=== PATIENT | male | born 1970 | race Caucasian/White ===

== ENCOUNTER 2016-10-27 17:43 | Emergency (ER) | payer OTHER ==
[~2016-10-27] VITALS: Ht 170.2 cm; Wt 88.5 kg
[~2016-10-27 17:43] MED LIST: CIPROFLOXACIN500 M1 PO; METFORMIN HCL500 MG PO; NOHOMEMEDICATIONS; PHENAZOPYRIDIN100 M1 PO; ROBAFEN AC SYR120 ML PO; ZPAK PO
[2016-10-27] MEDS ORDERED: NAPROSYN500 MG PO (18:43)
[2016-10-27] MEDS ORDERED: METFORMIN HCL500 MG PO (18:43)
[2016-10-27 18:55] VITALS: BP 128/74
== END 2016-10-27 18:56 | disposition home or self-care (01) ==
LOC: ER 17:43
DX: M19.071 Primary osteoarthritis, right ankle and foot (principal); Z76.0 Encounter for issue of repeat prescription; Z90.89 Acquired absence of other organs

== ENCOUNTER 2017-02-14 02:20 | Emergency (ER) | payer OTHER ==
[~2017-02-14] VITALS: Ht 170.2 cm; Wt 82.6 kg
[~2017-02-14 02:20] MED LIST changes: +NAPROSYN500 MG PO
[2017-02-14 02:27] VITALS: BP 155/98
[2017-02-14] MEDS ORDERED: AUGMENTIN 875-1 EACH PO (03:11)
[2017-02-14] MEDS ORDERED: BENADRYL25 MG PO (03:11)
== END 2017-02-14 03:20 | disposition home or self-care (01) ==
LOC: ER 02:20
DX: L02.01 Cutaneous abscess of face (principal); F10.99 Alcohol use, unspecified with unspecified alcohol-induced disorder; Z98.890 Other specified postprocedural states

== ENCOUNTER 2019-03-14 18:35 | Emergency (ER) | payer OTHER ==
[~2019-03-14] VITALS: Ht 170.2 cm; Wt 83.9 kg
[~2019-03-14 18:35] MED LIST changes: +AUGMENTIN 875-1 EACH PO; +BENADRYL25 MG PO; +HYDROCODON-ACE1 EAC7 PO
[2019-03-14 18:38] VITALS: BP 153/100
[2019-03-14] MEDS ORDERED: VIBRAMYCIN 100100 M2 PO (19:06)
== END 2019-03-14 19:20 | disposition home or self-care (01) ==
LOC: ER 18:35
DX: L73.9 Follicular disorder, unspecified (principal); R59.1 Generalized enlarged lymph nodes; E11.9 Type 2 diabetes mellitus without complications; Z90.49 Acquired absence of other specified parts of digestive tract; Z98.890 Other specified postprocedural states

== ENCOUNTER 2020-01-03 21:07 | Emergency (ER) | payer OTHER ==
[~2020-01-03] VITALS: Ht 170.2 cm; Wt 90.7 kg
[~2020-01-03 21:07] MED LIST changes: +VIBRAMYCIN 100100 M2 PO
[2020-01-03] MEDS ORDERED: METFORMIN HCL1000 MG PO (21:28)
[2020-01-03 22:09] VITALS: BP 158/89
== END 2020-01-03 22:00 | disposition home or self-care (01) ==
LOC: ER 21:07
DX: U07.1 COVID-19 (principal); E11.9 Type 2 diabetes mellitus without complications; Z90.49 Acquired absence of other specified parts of digestive tract; Z79.899 Other long term (current) drug therapy

== ENCOUNTER 2020-02-25 09:32 | Emergency (ER) | payer OTHER ==
[~2020-02-25] VITALS: Ht 170.2 cm; Wt 95.3 kg
[~2020-02-25 09:32] MED LIST changes: +METFORMIN HCL1000 MG PO
[2020-02-25] MEDS ORDERED: BACTRIM DS TAB1 EACH PO (13:01)
[2020-02-25] MEDS ORDERED: KEFLEX500 M1 PO (13:01)
[2020-02-25 13:02] VITALS: BP 141/87
== END 2020-02-25 13:02 | disposition home or self-care (01) ==
LOC: ER 09:32
DX: L03.031 Cellulitis of right toe (principal); E11.9 Type 2 diabetes mellitus without complications

== ENCOUNTER 2020-06-26 08:35 | Emergency (ER) | payer OTHER ==
[~2020-06-26] VITALS: Ht 170.2 cm; Wt 91.2 kg
[~2020-06-26 08:35] MED LIST changes: +BACTRIM DS TAB1 EACH PO; +KEFLEX500 M1 PO
[2020-06-26 09:50] LABS: ABSOLUTE NEUTROPHILS 4.5 thou/uL (1.4-8.2); BASOPHILS 0.7 % (0.0-2.0); HEMATOCRIT 42.8 % (42.0-52.0); HEMOGLOBIN 14.2 gm/dL (14.0-18.0); LYMPHOCYTES 15.5 % (24.0-44.0); MCH 29.4 pg (26.0-34.0); MCHC 33.2 g/dL (28.0-37.0); MCV 88.5 fL (80.0-100.0); MONOCYTES 12.2 % (1.0-8.0); PLATELET COUNT 190 thou/uL (150-400); POLYS 71.6 % (36.0-66.0); RBC 4.83 mil/uL (4.50-6.00); RDW 13.3 % (10.5-14.5); WBC 6.3 thou/uL (4.0-11.0)
[2020-06-26 10:04] LABS: ANION GAP 8 mmol/L (7-16); BUN 10 mg/dL (7-18); CALCIUM 8.9 mg/dL (8.5-10.1); CHLORIDE 97 mmol/L (98-107); CO2 26 mmol/L (21-32); CREATININE 0.8 mg/dL (0.7-1.3); GLUCOSE 370 mg/dL (74-106); POTASSIUM 4.1 mmol/L (3.5-5.1); SODIUM 131 mmol/L (136-145)
[2020-06-26 10:14] LABS: ALBUMIN 3.2 g/dL (3.4-5.0); SGOT 13 U/L (15-37); SGPT 30 U/L (16-63); TOTAL BILIRUBIN 0.3 mg/dL (0.2-1.0); TOTAL PROTEIN 7.4 g/dL (6.4-8.2); TROPONIN-I <0.06 ng/mL (<0.06)
--- NOTE | 2020-06-26 10:21 | EKG ---
[place] [address] [facility] [place] [address] ELECTROCARDIOGRAM REPORT Name: CHINO AGUSTIN Room #: REG [facility]#: [id number] Admission: 06/26/20 Attend Phys: Discharge: Date of : 70 Report #: [id number] [facility] ED Test Date: 2020-06-26 Test Time: 09:19:21 Pat Name: CHINO AGUSTIN Department: Room: Gender: M Hide Selector: keesah acevedo : 1970 Requested By: Davis Appiah Order Number: [id number] MD: Arsenio Bah Measurements Intervals [place] Rate: 108 P: 37 MI: 140 QRS: 6 QRSD: 129 T: 8 QT: 338 QTc: 453 Interpretive Statements Sinus tachycardia Right bundle branch block Baseline wander in lead(s) V1 Compared to ECG 04/04/2017 00:13:20 Right bundle-branch block now present Sinus rhythm no longer present Electronically Signed On 06-26-2020 10:21:28 GROUT MACHINE OPERATOR by Arsenio Bah [email or web address] <ELECTRONICALLY SIGNED> By: Arsenio Bah MD 06/26/20 1021 8 8 Arsenio Bah MD /SHRAON
[2020-06-26 10:52] VITALS: BP 132/78
== END 2020-06-26 10:52 | disposition home or self-care (01) ==
LOC: ER 08:35
PROVIDERS: Emergency Medicine
DX: R05 Cough (principal); Z20.828 Contact with and (suspected) exposure to other viral communicable diseases; E11.9 Type 2 diabetes mellitus without complications; Z98.890 Other specified postprocedural states; Z90.49 Acquired absence of other specified parts of digestive tract